=== PATIENT | female | born 1960 | race American Indian/Alaskan Native ===

== ENCOUNTER 2017-07-09 16:20 | Emergency (ER) | payer SELFPAY ==
[~2017-07-09] VITALS: Ht 162.6 cm; Wt 90.0 kg
[~2017-07-09 16:20] MED LIST: HYDR-565 PO
[2017-07-09 17:57] VITALS: BP 118/60
== END 2017-07-09 18:08 | disposition home or self-care (01) ==
LOC: ER 16:21
DX: M79.675 Pain in left toe(s) (principal); M25.561 Pain in right knee; F12.90 Cannabis use, unspecified, uncomplicated; F15.90 Other stimulant use, unspecified, uncomplicated; Z56.0 Unemployment, unspecified; Z79.899 Other long term (current) drug therapy
CPT/HCPCS: 99284